=== PATIENT | female | born 1995 | race African-American/Black ===

== ENCOUNTER 2017-05-31 10:14 | Emergency (ER) | payer SELFPAY ==
[~2017-05-31] VITALS: Ht 165.1 cm; Wt 53.5 kg
[2017-05-31 10:16] VITALS: BP 116/56; PULSE 86; RESP 12; TEMP 99.2; O2SAT 99
--- NOTE | 2017-05-31 10:41 | PD ---
HPI Chief Complaint: Cold / Flu Symptoms Time Seen by Provider: 10:32 Travel History International Travel<30 days: No Contact w/Intl Traveler<30days: No Traveled to known affect area: No History of Present Illness HPI The patient was seen and examined in the presence of the nurse. This patient complains of some vague symptoms. She's had some nausea and vomiting and diarrhea for 2 days. She also has some general malaise. She has a rare cough. No shortness of breath or abdominal pain. She doesn't think she is but is not using control. Denies ill contacts. Symptoms severity is moderate. No Alleviating factors. PFSH Past Medical History ADHD: No Depression: Yes (I FEEL THE OTHER KID DON'T LIKE ME) Cancer: No Diabetes: No Headaches: Yes Psychiatric: No Immunizations Current: Yes Migraines: No Seizures: No Thyroid Disease: No Ulcer: No ?: Unknown : 0 Para: 0 Miscarriage: 0 : 0 Ectopic : No Ovarian Cysts: No Dilation and Curettage (D&C): No Tubal Ligation: No Past Surgical History Appendectomy: No Section: No Cholecystectomy: No Social History Alcohol Use: No Tobacco Use: Yes Substance Use: No Allergies-Medications (Allergen,Severity, Reaction): Coded Allergies: No Known Allergies (Verified Adverse Reaction, Unknown, 05/31/17) Reported Meds & Prescriptions Reported Meds & Active Scripts Active Zofran (Ondansetron HCl) 4 Mg Tab 4 Mg PO Q6HR PRN Review of Systems General / Constitutional: No: Fever Eyes: No: Visual changes HENT: Positive: Lightheadedness, No: Headaches Cardiovascular: No: Chest Pain or Discomfort Respiratory: No: Shortness of Breath Gastrointestinal: Positive: Nausea, Vomiting, Diarrhea, No: Abdominal Pain Genitourinary: No: Dysuria Musculoskeletal: No: Pain Skin: No Rash Neurologic: No: Weakness Psychiatric: No: Depression Endocrine: No: Polydipsia Hematologic/Lymphatic: No: Easy Bruising Physical Exam Narrative GENERAL: Well-nourished, well-developed patient in no apparent distress. SKIN: Focused skin assessment reveals no rash and nodules. Skin is Warm and dry. HEAD: Atraumatic. Normocephalic. EYES: Pupils equal and round. No scleral icterus. No injection or drainage. ENT: No nasal bleeding or discharge. Mucous membranes pink and moist. NECK: Trachea midline. No JVD. CARDIOVASCULAR: Regular rate and rhythm. No murmur appreciated. RESPIRATORY: No accessory muscle use. Clear to auscultation. Breath sounds equal bilaterally. GASTROINTESTINAL: Abdomen soft, non-tender, nondistended. Hepatic and splenic margins not palpable. MUSCULOSKELETAL: No obvious deformities. No clubbing. No cyanosis. No edema. NEUROLOGICAL: Awake and alert. No obvious cranial nerve deficits. Motor grossly within normal limits. Normal speech. PSYCHIATRIC: Appropriate mood and affect; insight and judgment normal. Data Data Last Documented VS Vital Signs Date Time Temp Pulse Resp B/P (MAP) Pulse Ox O2 Delivery O2 Flow Rate FiO2 05/31/17 10:34 98 Room Air 05/31/17 10:16 99.2 86 12 116/56 (76) Orders Orders Ed Urine Pregnancytest Poc (05/31/17 10:38) [facility] Medical Decision Making Medical Screen Exam Complete: Yes Emergency Medical Condition: Yes Medical Record Reviewed: Yes Differential Diagnosis Gastritis, colitis, hyperemesis gravidarum Narrative Course I have reviewed the patient's electronic medical record. Urine is negative Patient looks clinically well. Likely has some degree of viral syndrome Is euvolemic with benign exam Zofran prescribed Spontaneous resolution is expected Diagnosis Primary Impression: Nausea vomiting and diarrhea Additional Instructions: The patient was advised to follow up with their physician and return if they worsen. Med/Other Pt SpecificInfo: Prescription(s) given Scripts Ondansetron (Zofran) 4 Mg Tab 4 MG PO Q6HR Y for NAUSEA OR VOMITING, #10 TAB 0 Refills Prov: Osbaldo Torres MD 05/31/17 Disposition: DISCHARGE HOME Condition: Stable Osbaldo Torres MD May 31, 2017 10:41
[2017-05-31] MEDS ORDERED: ZOFR4TAB PO (11:14)
== END 2017-05-31 11:35 | disposition home or self-care (01) ==
LOC: NEPD 10:14
DX: R11.2 Nausea with vomiting, unspecified (principal); R19.7 Diarrhea, unspecified; F32.9 Major depressive disorder, single episode, unspecified; Z72.0 Tobacco use
CPT/HCPCS: 84703; 99283